=== PATIENT | male | born 1960 | race Caucasian/White ===

== ENCOUNTER 2022-04-04 08:21 | Day surgery (SDC) | payer MEDICAID ==
[~2022-04-04] VITALS: Ht 177.8 cm; Wt 104.0 kg
[~2022-04-04 08:21] MED LIST: LACT1CAP26 PO; NO HOME MEDS; VANC250C12 PO
[2022-04-04 08:30] VITALS: BP 143/93
[2022-04-04] MEDS ORDERED: OMEP40CA21 PO (08:32)
[2022-04-04] MEDS ORDERED: fentaNYL/PF 50MCG/1 ML 2ML syringe ONE (08:38)
[2022-04-04] MEDS ORDERED: MIDAZolam 1 MG/ML 5ML VIAL ONE (08:38)
[2022-04-04 11:08] VITALS: BP 109/66
[2022-04-04 11:28] VITALS: BP 100/64
[2022-04-04 11:38] VITALS: BP 120/72
[2022-04-04 11:48] VITALS: BP 113/74
== END 2022-04-04 11:45 | disposition home or self-care (01) ==
LOC: GI LAB 08:21
PROVIDERS: ATTEND Internal Medicine Gastroenterology
DX: Z08 Encounter for follow-up examination after completed treatment for malignant neoplasm (principal); K57.30 Diverticulosis of large intestine without perforation or abscess without bleeding; Z85.038 Personal history of other malignant neoplasm of large intestine; K64.8 Other hemorrhoids; Z96.0 Presence of urogenital implants; Z68.38 Body mass index [BMI] 38.0-38.9, adult; Z86.010 Personal history of colon polyps; Z98.890 Other specified postprocedural states
CPT/HCPCS: 45378; 99152; J2250; J3010; Z7512; 99153; A4620